=== PATIENT | female | born 1985 | race Caucasian/White ===

== ENCOUNTER → 2024-03-01 13:30 | Outpatient (CLI) | payer OTHER, SELFPAY ==
--- NOTE | 2024-03-01 13:32 | DI.MRI.S_ITS ---
PROCEDURE: MR HIP LT W CON INDICATIONS: Acetabular Labrum tear left hip TECHNIQUE: After the administration of 10 mL of dilute intra-articular Gadolinium contrast, coronal STIR of the bony pelvis; coronal and oblique axial T1 spin echo with fat saturation, axial T2 fast spin echo with fat saturation, sagittal T1 spin echo with and without fat saturation of the involved hip. COMPARISON: None. FINDINGS: Image quality: Excellent. Bones and joints: [id number] left hip joint osteoarthritic changes are seen with joint space narrowing, subchondral sclerosis and small lateral marginal osteophyte formation. Prominence of superior anterior left femoral head neck junction is seen which can be seen associated with CAM type femoral acetabular impingement. No intraosseous lesions or fractures. No avascular necrosis of the femoral head. The visualized lower lumbar spine appears normally aligned. The ligamental, neck, and labral plicae appear normal where visualized. Tendons and ligaments: Distal left gluteus medius and minimus tendinosis is seen at their insertions on greater trochanter. The nearby proximal iliotibial band also appears intact. The iliopsoas tendon appears intact, without adjacent bursal fluid collections or evidence for impingement syndrome. Tendinosis involving left hamstring tendon origins at ischial tuberosity is noted. Labrum and cartilage: Fraying of superior anterior labrum with contrast extension at 1 to 2 o'clock position is seen suggestive of superior anterior labral tear. Thinning of articulating cartilage over left femoral head is noted. No paralabral cysts. The alpha angle of the femur is within normal limits at less than 55 degrees. Soft tissues: Visualized muscles demonstrate normal bulk and internal signal. Quadratus femoris muscle demonstrates no internal edema to suggest ischiofemoral impingement. The proximal sciatic neurovascular bundle appears normal adjacent to the hamstring tendons. No free pelvic fluid. Bladder wall thickness is normal. Genitourinary structures and bowel loops appear normal where visualized. There is possible right ovarian cyst measures 2.1 x 2.2 cm in size. IMPRESSION: 1. Finding is consistent with superior anterior left hip labral tear at 1 to 2 o'clock position. 2. [id number] left hip joint osteoarthritis. No fracture or dislocation. No evidence of avascular necrosis. Prominence of superior anterior left femoral head neck junction which can be seen associated with CAM type femoral acetabular impingement. 3. Distal left gluteus medius and minimus tendinosis. Tendinosis involving left hamstring tendon origins at ischial tuberosity. No other muscle or tendon signal abnormalities. 4. 2.1 x 2.2 cm likely right ovarian cyst. If indicated, pelvic ultrasound can be done for further evaluation of this region. Dictated by: Beau Fatima M.D. on 03/01/2024 at 14:54 Approved by: Beau Fatima M.D. on 03/01/2024 at 15:08
--- NOTE | 2024-03-01 13:34 | DI.RAD.S_ITS ---
PROCEDURE: FL HIP INJECTION MR/CT LT INDICATIONS: Acetabular Labrum tear left hip TECHNIQUE: The indications, alternatives, benefits, risks, and complications of the procedure were explained to the patient. Written informed consent was obtained and placed in the chart. The hip was examined fluoroscopically with the legs fixed in slight internal rotation, and a site for needle placement chosen for entry into the hip joint from an anterior approach. Care was taken to locate the common femoral artery and vein beforehand. The skin was prepped and draped in a sterile fashion, and 1% Lidocaine infiltrated from skin down to joint capsule. A spinal needle was inserted into the joint, and a small amount of iodinated contrast media injected to confirm intra-articular placement of the needle tip. This was followed by approximately 10 mL dilute solution of a gadolinium containing MR contrast agent. The needle was removed and a dressing was applied. The patient was given postprocedural instructions and sent to the MR suite for imaging. COMPARISON: None. FINDINGS: A single fluoroscopic spot image demonstrates intra-articular location of injected iodinated contrast. IMPRESSION: Successful fluoroscopically guided administration of dilute Gadolinium solution into the hip joint for MR arthrogram. Dictated by: Beau Fatima M.D. on 03/01/2024 at 14:54 Approved by: Beau Fatima M.D. on 03/01/2024 at 14:54
[2024-03-01] MEDS: LIDOCAINE 1% 20 ML INJ (14:23)
[2024-03-01] MEDS: SODIUM CHLORIDE 0.9 % 20 ML VIAL IV (14:23)
== END ==
LOC: RAD 13:31
PROVIDERS: Referring Provider Orthopaedic Surgery Adult Reconstructive Orthopaedic Surgery; Visit Provider Orthopaedic Surgery Adult Reconstructive Orthopaedic Surgery
DX: M24.152 Other articular cartilage disorders, left hip (principal); M16.12 Unilateral primary osteoarthritis, left hip
CPT/HCPCS: 27093; 73525; 73722; A9579; Q9967